=== PATIENT | female | born 1960 | race Caucasian/White ===

== ENCOUNTER → 2020-10-19 | Outpatient (CLI) | payer OTHER | END | disposition home or self-care (01) | LOC: RX STUDY 10:07 | DX: R13.19 Other dysphagia (principal) ==

== ENCOUNTER 2021-11-10 11:17 | Outpatient (CLI) | payer OTHER | END 2021-11-10 14:29 | disposition home or self-care (01) | LOC: SONOGRAMA 11:17 | PROVIDERS: ATTEND Pathology Anatomic Pathology & Clinical Pathology | DX: E04.1 Nontoxic single thyroid nodule (principal) ==

== ENCOUNTER 2023-10-02 10:22 | Outpatient (CLI) | payer OTHER | END 2023-10-02 10:28 | disposition home or self-care (01) | LOC: RX STUDY 10:22 | DX: R13.10 Dysphagia, unspecified (principal) ==

== ENCOUNTER 2025-02-26 10:48 | Outpatient (CLI) | payer OTHER | END 2025-02-26 10:56 | disposition home or self-care (01) | LOC: SONOGRAMA 10:48 | PROVIDERS: ATTEND Pathology Anatomic Pathology | DX: D34 Benign neoplasm of thyroid gland (principal); E07.89 Other specified disorders of thyroid; E04.1 Nontoxic single thyroid nodule ==